=== PATIENT | male | born 1995 | race Caucasian/White ===

== ENCOUNTER 2021-06-26 19:21 | Observation (INO) | payer OTHER ==
[2021-06-26 19:26] VITALS: BMI 38.2
[2021-06-26] MEDS ORDERED: ONDANSETRON 4 MG/2 ML VIAL IVPUSH ONE (20:06)
[2021-06-26] MEDS ORDERED: ACETAMINOPHEN 1000 MG/100 ML BAG IVPB ONE (20:06)
[2021-06-26] MEDS ORDERED: SODIUM CHLORIDE 1,000 ML IV STA ×2 (20:06→23:48)
[2021-06-26] MEDS ORDERED: ONDANSETRON 4 MG/2 ML VIAL ONE ×2 (20:39→20:46)
[2021-06-26] MEDS ORDERED: ACETAMINOPHEN INJECTION 100 ML IVPB ONE (20:39)
[2021-06-26 21:04] LABS: BASO % 0.2 % (0-2.0); HEMATOCRIT 54.4 % (35.4-49); HEMOGLOBIN 18.8 GM/dL (11.7-16.9); LYMPH % 7.1 % (8-40); MCH 29.2 pg (25.7-33.7); MCHC 34.6 g/dl (32.0-35.9); MEAN CELL VOLUME 84.3 fl (80-96); MEAN PLT VOLUME 7.6 fl (7.5-11.1); MONO % 3.9 % (3.8-10.2); NEUT % 87.8 % (42.8-82.8); PLATELET COUNT 354 10^3/uL (134-434); RBC 6.46 M/mm3 (4.00-5.60); RDW 13.1 % (11.9-15.9); WHITE BLOOD COUNT 17.9 K/mm3 (4.0-10.0)
[2021-06-26 21:05] LABS: EPI CELLS >36 /uL (0-25.1); HYALINE CASTS 147 /uL (0-3.1); URINE APPEARANCE TURBID; URINE BACTERIA 17 /uL (0-1359); URINE BILIRUBIN 2+ (NEGATIVE); URINE COLOR DK YELLOW; URINE GLUCOSE (UA) NEGATIVE (NEGATIVE); URINE KETONE 1+ (NEGATIVE); URINE LEUK ESTERASE TRACE (NEGATIVE); URINE NITRITE NEGATIVE (NEGATIVE); URINE PROTEIN 3+ (NEGATIVE); URINE WBC 93 /uL (0-25.8)
[2021-06-26 21:29] LABS: ALBUMIN 4.9 g/dl (3.4-5.0); BLOOD UREA NITROGEN 21.2 mg/dL (7-18); CALCIUM 9.8 mg/dL (8.5-10.1)
[2021-06-26 21:32] LABS: CREATININE 1.7 mg/dL (0.55-1.3)
[2021-06-26 21:34] LABS: TOT PROT 9.8 g/dl (6.4-8.2)
[2021-06-26 21:38] LABS: URINE RBC 27.9 /uL (0-23.9)
[2021-06-27] MEDS ORDERED: SODIUM CHLORIDE 0.9% 1000 ML INFUS.BAG IV ONE (00:43)
[2021-06-27] MEDS: LACTATED RINGERS SOLUTION 1,000 ML IV SCH ×2 (04:50→19:13)
[2021-06-27 05:51] LABS: BASO % 0.4 % (0-2.0); EOS % 1.5 % (0-4.5); HEMATOCRIT 44.9 % (35.4-49); HEMOGLOBIN 15.6 GM/dL (11.7-16.9); LYMPH % 15.1 % (8-40); MCH 29.3 pg (25.7-33.7); MCHC 34.6 g/dl (32.0-35.9); MEAN CELL VOLUME 84.6 fl (80-96); MEAN PLT VOLUME 7.7 fl (7.5-11.1); MONO % 7.3 % (3.8-10.2); NEUT % 75.7 % (42.8-82.8); PLATELET COUNT 279 10^3/uL (134-434); RBC 5.31 M/mm3 (4.00-5.60); RDW 12.9 % (11.9-15.9); WHITE BLOOD COUNT 11.3 K/mm3 (4.0-10.0)
[2021-06-27 06:13] LABS: MAGNESIUM 1.9 mg/dL (1.8-2.4)
[2021-06-27 06:16] LABS: CREATININE 1.2 mg/dL (0.55-1.3); PHOSPHOROUS 3.4 mg/dL (2.5-4.9)
[2021-06-27 06:17] LABS: BILIRUBIN,TOTAL 0.9 mg/dL (0.2-1)
[2021-06-27 06:22] LABS: ALBUMIN 3.7 g/dl (3.4-5.0); CALCIUM 8.3 mg/dL (8.5-10.1); TOT PROT 7.1 g/dl (6.4-8.2)
[2021-06-27 06:27] LABS: EPI CELLS 17 /uL (0-25.1); HYALINE CASTS 14 /uL (0-3.1); PH,URINE 5.5 (5.0-8.0); URINE APPEARANCE TURBID; URINE BACTERIA 54 /uL (0-1359); URINE BILIRUBIN NEGATIVE (NEGATIVE); URINE COLOR YELLOW; URINE GLUCOSE (UA) NEGATIVE (NEGATIVE); URINE KETONE NEGATIVE (NEGATIVE); URINE LEUK ESTERASE NEGATIVE (NEGATIVE); URINE NITRITE NEGATIVE (NEGATIVE); URINE PROTEIN 1+ (NEGATIVE); URINE RBC 8 /uL (0-23.9); URINE UROBILINOGEN 0.2 mg/dL (0.2-1.0); URINE WBC 17 /uL (0-25.8)
[2021-06-27] MEDS ORDERED: ONDANSETRON 4 MG/2 ML VIAL IVPUSH PRN (10:00)
[2021-06-28] MEDS: LACTATED RINGERS SOLUTION 1,000 ML IV SCH (07:43)
[2021-06-28 15:33] VITALS: BP 128/61; PULSE 81; TEMP 97.8
[2021-07-02 18:07] LABS: STOOL CHLORIDE 28 mmol/L (.); STOOL POTASSIUM 92 mmol/L (.); STOOL SODIUM 41 mmol/L (.)
== END 2021-06-28 15:57 | disposition home or self-care (01) ==
LOC: SUATTDRO 19:21 → JER 19:21 → UNDOADMOB 06-27 02:21 → JERBED 06-27 02:21 → INTOOBSV 06-27 02:21 → JERBED 06-27 04:38 → J8W 06-27 06:27
PROVIDERS: ADMIT Internal Medicine; ATTEND Internal Medicine
PROC: 3E033NZ Introduction of Analgesics, Hypnotics, Sedatives into Peripheral Vein, Percutaneous Approach (ICD-10-PCS; principal; 2021-06-27)
PROC: 3E033GC Introduction of Other Therapeutic Substance into Peripheral Vein, Percutaneous Approach (ICD-10-PCS; 2021-06-27)
PROC: 3E0337Z Introduction of Electrolytic and Water Balance Substance into Peripheral Vein, Percutaneous Approach (ICD-10-PCS; 2021-06-27)
DX: K52.9 Noninfective gastroenteritis and colitis, unspecified (principal); N17.8 Other acute kidney failure; D72.829 Elevated white blood cell count, unspecified; E86.0 Dehydration; D75.1 Secondary polycythemia; E66.9 Obesity, unspecified; Z68.38 Body mass index [BMI] 38.0-38.9, adult
CPT/HCPCS: 36415; 71046-TC-FY; 74176-TC; 76705-TC; 80053; 81003; 82438; 82710; 83690; 83735; 83986; 84100; 84302; 84443; 84999; 85025; 87045; 87046; 87086; 87177; 87186; 87205; 87209; 87324; 87449; 93005; 93010; 96361; 96374; 96375; 99285-25; C9803-CS; G0378; U0003; U0005